=== PATIENT | female | born 1980 | race Caucasian/White ===

== ENCOUNTER 2016-12-20 14:37 | Emergency (ER) | payer OTHER ==
[2016-12-20 15:12] VITALS: O2SAT 100
[2016-12-20 16:53] LABS: RBC URINE < 1 /hpf (0-3); URINE BILIRUBIN NEGATIVE (NEGATIVE); URINE BLOOD NEGATIVE (NEGATIVE); URINE COLOR Straw (YELLOW); URINE GLUCOSE (UA) NORMAL (Normal); URINE KETONE NEGATIVE (NEGATIVE); URINE LEUKOCYTE ESTERASE NEG Leu/uL (Negative); URINE PROTEIN NEGATIVE (NEGATIVE); URINE UROBILINOGEN NORMAL mg/dL (0.2-1.0); WBC URINE 1 /hpf (0-5)
--- NOTE | 2016-12-20 17:22 | C.PDOC ---
History Of Present Illness 36 year old female presents to the ED with complaints of lower abdominal pain, back pain that is worse on the right side and radiates to the right leg beginning this morning. Patient notes pain is "bearable but constant," associated chills and nausea, last menstrual period was one week ago. She mentions feeling dysuria while in the ED, and a history of UTI in the last year with current symptoms similar to the ones experienced with the past UTI. Patient 's PMD is Dr. Tim Gallo and denies any trauma, vomiting, or the use of any pain medication. Has history of endometriosis Time Seen by Provider: 12/20/16 16:29 Chief Complaint (Nursing): Back Pain History Per: Patient History/Exam Limitations: no limitations Onset/Duration Of Symptoms: Hrs Current Symptoms Are (Timing): Still Present Quality Of Discomfort: "Pain" Associated Symptoms: Chills, Nausea. denies: Vomiting, Diarrhea Recent travel outside of the [place]: No Abnormal Vaginal Bleeding: No Last Menstral Period: 12/13/16 Past Medical History Reviewed: Historical Data, Nursing Documentation, Vital Signs Vital Signs: Last Vital Signs Temp 98.3 F 12/20/16 17:51 Pulse 66 12/20/16 17:51 Resp 16 12/20/16 17:51 BP 125/79 12/20/16 17:51 Pulse Ox 100 12/20/16 17:54 - Medical History Other PMH: endometriosis Surgical History: Appendectomy Family History: States: Unknown Family Hx - Social History Hx Alcohol Use: No Hx Substance Use: No - Immunization History Hx Tetanus Toxoid Vaccination: No Hx Influenza Vaccination: No Hx Pneumococcal Vaccination: No Review Of Systems Constitutional: Positive for: Chills. Negative for: Fever, Sweats Cardiovascular: Negative for: Chest Pain, Palpitations Gastrointestinal: Positive for: Nausea, Abdominal Pain. Negative for: Vomiting , Diarrhea Genitourinary: Positive for: Dysuria Musculoskeletal: Positive for: Back Pain, Leg Pain (radiating leg pain from the back pain ) Neurological: Negative for: Headache Physical Exam - Physical Exam Appears: Non-toxic, No Acute Distress Skin: Warm, Dry Head: Atraumatic, Normacephalic Eye(s): bilateral: Normal Inspection Nose: Normal Oral Mucosa: Moist Neck: Normal ROM, Supple Chest: Symmetrical, No Deformity Cardiovascular: Rhythm Regular Respiratory: No Rales, No Rhonchi, No Stridor, No Wheezing Gastrointestinal/Abdominal: Bowel Sounds, Soft, Tenderness (mild suprapubic tenderness), No Distention, No Guarding, No Rebound Back: Normal Inspection, No CVA Tenderness, No Vertebral Tenderness, No Paraspinal Tenderness Extremity: Normal ROM, No Tenderness Neurological/Psych: Oriented x3, Normal Speech ED Course And Treatment O2 Sat by Pulse Oximetry: 100 (room air ) Pulse Ox Interpretation: Normal Medical Decision Making Medical Decision Making: Patient declined pain medication and urine analysis was performed. UA reviewed and negative. Pelvic exam performed showing normal external exam, vagina has white thin discharge, cervix closed, no CMT, no adnexal tenderness, no masses. Will treat for vaginitis and instruct to follow up with manager engagement Disposition Counseled Patient/Family Regarding: Need For Followup, Rx Given - Disposition Referrals: Ruben Gallo MD [Medical Doctor] - Disposition: HOME/ ROUTINE Disposition Time: 17:19 Condition: STABLE Additional Instructions: Por favor, siga con husain gineclogo para alberto evaluacin posterior Prescriptions: Metronidazole 55 gm TP DAILY #5 gel.w.pump Instructions: Bacterial Vaginosis (ED) Print Language: BELARUSIAN - POA Present On Arrival: None - Clinical Impression Clinical Impression: Bacterial vaginosis - Scribe Statement The provider has reviewed the documentation as recorded by the [employer] All medical record entries made by the Scribe were at my direction and personally dictated by me. I have reviewed the chart and agree that the record accurately reflects my personal performance of the history, physical exam, medical decision making, and the department course for this patient. I have also personally directed, reviewed, and agree with the discharge instructions and disposition.
[2016-12-20 17:51] VITALS: BP 125/79; PULSE 66; RESP 16; TEMP 98.3
== END 2016-12-20 17:51 | disposition home or self-care (01) ==
LOC: C.ER 14:37
DX: N76.0 Acute vaginitis (principal)